=== PATIENT | female | born 1985 | race Caucasian/White ===

== ENCOUNTER 2016-08-01 17:30 | Emergency (ER) | payer MEDICARE, OTHER ==
[2016-08-01 21:17] LABS: HEMOGLOBIN 13.7 gm/dl (12.3-15.3); RED BLOOD COUNT 4.47 M/UL (4.00-5.10); WHITE BLOOD COUNT 7.6 K/UL (4.5-11.0)
[2016-08-01 21:47] LABS: BUN/CREATININE RATIO 10 (0-10)
== END 2016-08-01 22:52 | disposition home or self-care (01) ==
LOC: ER1 17:30
PROVIDERS: Emergency Medicine
DX: N39.0 Urinary tract infection, site not specified (principal); Z87.442 Personal history of urinary calculi
CPT/HCPCS: 36415; 80053; 81001; 83690; 84703; 85025; 87086; 96374; 96375; 99284; J0696; J2270; J2405; J7050

== ENCOUNTER 2016-09-10 18:21 | Emergency (ER) | payer MEDICARE, OTHER | END 2016-09-10 21:10 | disposition left against medical advice (07) | LOC: ER1 18:21 | DX: Z53.21 Procedure and treatment not carried out due to patient leaving prior to being seen by health care provider (principal) ==

== ENCOUNTER → 2016-10-15 | Outpatient (CLI) | payer MEDICARE, OTHER | LOC: RAD 09:34 | DX: S93.601A Unspecified sprain of right foot, initial encounter (principal); S93.401A Sprain of unspecified ligament of right ankle, initial encounter; M79.89 Other specified soft tissue disorders | CPT/HCPCS: 73610; 73630 ==

== ENCOUNTER → 2020-07-18 | Outpatient (CLI) | payer MEDICARE, OTHER ==
[~2020-07-18] MED LIST: ASPIRIN CHEWABL81 MG PO; BENADRYL 50MG C50 MG PO; BENADRYL25 MG PO; CEFUROXIME500 MG PO; CLEOCIN HCL300 MG PO; DESYREL 50 MG T50 MG PO; DRAMAMINE LESS25 MG PO; IBUPROFEN600 MG PO; IBUPROFEN800 MG PO; LEVETIRACETAM500 M1 PO; LIPITOR TAB 2020 MG PO; LIPITOR80 MG PO; MACROBID 100 M100 MG PO; MULTI-VITAMIN1 EACH PO; NEURONTIN800 MG PO; NORCO 5-325 TA1 EACH PO; NORCO 7.5-3251 EACH PO; OMNICEF 300 MG300 MG PO; PAXIL40 MG PO; PROTONIX 40 MG40 M1 PO; PYRIDIUM100 MG PO; REGLAN10 MG PO; SEROQUEL50 MG PO; TORADOL 10 MG T10 MG PO; TYLENOL 500 MG500 MG PO; ZANAFLEX 4 MG TA4 MG PO
== END ==
LOC: KOH-I 10:04
DX: R05 Cough (principal); M54.2 Cervicalgia; M54.6 Pain in thoracic spine; M25.571 Pain in right ankle and joints of right foot; M48.04 Spinal stenosis, thoracic region; M40.204 Unspecified kyphosis, thoracic region; M40.55 Lordosis, unspecified, thoracolumbar region; M79.89 Other specified soft tissue disorders; M25.871 Other specified joint disorders, right ankle and foot
CPT/HCPCS: 71046; 72050; 72070; 72100; 73610

== ENCOUNTER 2021-01-17 20:32 | Emergency (ER) | payer OTHER | END 2021-01-17 23:00 | disposition home or self-care (01) | LOC: ER1 20:32 | DX: M54.5 Low back pain (principal); V49.50XA Passenger injured in collision with unspecified motor vehicles in traffic accident, initial encounter; Y92.410 Unspecified street and highway as the place of occurrence of the external cause | CPT/HCPCS: 71045; 72131; 99284 ==

== ENCOUNTER → 2022-01-03 | Outpatient (CLI) | payer OTHER | LOC: KOH-I 10:26 | DX: M54.2 Cervicalgia (principal); M54.6 Pain in thoracic spine; M54.50 Low back pain, unspecified; M47.814 Spondylosis without myelopathy or radiculopathy, thoracic region; M47.816 Spondylosis without myelopathy or radiculopathy, lumbar region | CPT/HCPCS: 71046; 72040; 72070; 72100 ==